=== PATIENT | male | born 1970 | race Caucasian/White ===

== ENCOUNTER 2024-11-03 15:28 | Outpatient (CLI) | payer SELFPAY ==
[2024-11-03 16:38] LABS: Estmated Average Glucose 131; Hemoglobin A1C 6.2 % (4.0-6.0)
== END 2024-11-03 15:29 | disposition home or self-care (01) ==
LOC: LAB 15:30
PROVIDERS: PCP Family Medicine; Visit Provider Nurse Practitioner Family
DX: E11.9 Type 2 diabetes mellitus without complications (principal)
CPT/HCPCS: 36415; 83036

== ENCOUNTER 2025-10-31 10:29 | Outpatient (CLI) | payer SELFPAY ==
[2025-10-31 11:38] LABS: Estmated Average Glucose 126; Hemoglobin A1C 6.0 % (4.0-6.0)
== END 2025-10-31 10:30 | disposition home or self-care (01) ==
LOC: LAB 10:33
PROVIDERS: PCP Family Medicine; Visit Provider Nurse Practitioner Family
DX: E11.9 Type 2 diabetes mellitus without complications (principal)
CPT/HCPCS: 36415; 83036